=== PATIENT | female | born 1945 | race Caucasian/White ===

== ENCOUNTER 2022-05-14 08:30 | Outpatient (RCR) | payer MEDICARE, OTHER, SELFPAY ==
[2022-02-18 09:08] LABS: Glucose Point of Care 183 mg/dl (65-105)
== END 2022-05-14 08:48 | disposition home or self-care (01) ==
LOC: ANHCPREHAB 08:30
PROVIDERS: PCP Internal Medicine; Visit Provider Internal Medicine Cardiovascular Disease
DX: Z95.5 Presence of coronary angioplasty implant and graft (principal)
CPT/HCPCS: 93798